=== PATIENT | female | born 2000 | race African-American/Black ===

== ENCOUNTER → 2022-03-26 | Outpatient (CLI) | payer OTHER ==
--- NOTE | 2022-03-26 16:11 | KCIC ---
Right hand 3 views: Reason for examination: Smashed index finger with a 230 pound weight today. No acute fracture or dislocation is seen. The bone density is normal. No abnormal periosteal reaction is seen. Joint spaces are maintained. IMPRESSION: No acute bony abnormality evident in the right hand. Electronically signed by: Dolores Larsen MD (03/26/2022 4:08 PM) MISAEL
== END ==
LOC: KCIC 15:22
PROVIDERS: ATTEND Family Medicine
DX: S67.190A Crushing injury of right index finger, initial encounter (principal); X58.XXXA Exposure to other specified factors, initial encounter; Y93.89 Activity, other specified; Y92.89 Other specified places as the place of occurrence of the external cause; Y99.8 Other external cause status
CPT/HCPCS: 73130; 73140